=== PATIENT | female | born 1965 | race Caucasian/White ===

== ENCOUNTER 2016-04-11 10:25 | Outpatient (CLI) | payer BC ==
--- NOTE | 2016-04-11 11:33 | DIAGNOSTIC IMAGING REPORT ---
PROCEDURE: MG BILATERAL SCREENING W/CAD INDICATION: Screening. Previous biopsy of right breast calcifications (benign). TECHNIQUE: Bilateral CC and MLO digital views. COMPARISON: Compared to 12/31/2012, and 03/22/2012. FINDINGS: Computer-aided detection applied. Dense parenchymal pattern with a few dystrophic and micro calcifications (consistent with benign sclerosing adenosis). No significant change. IMPRESSION: 1. Negative mammogram. RESULT CODE: 2- Benign finding(s). A. A negative report should not delay biopsy if a dominant or clinically suspicious mass is present. 10-15% of cancers are not identified by x-ray. B. A negative report may reinforce clinical impression. C. Adenosis and dense breasts may obscure an underlying neoplasm. D. False positive reports average 6-10%. E.. A yearly screening mammogram is recommended. A reminder letter will be scheduled.
== END 2016-04-11 23:00 ==
LOC: MAM SRH 10:25
DX: Z12.31 Encounter for screening mammogram for malignant neoplasm of breast (principal); Z98.890 Other specified postprocedural states